=== PATIENT | female | born 2000 | race African-American/Black ===

== ENCOUNTER 2021-06-29 14:29 | Emergency (ER) | payer OTHER ==
[~2021-06-29] VITALS: Ht 157.5 cm; Wt 74.4 kg
[2021-06-29] MEDS ORDERED: HYDROCODONE/APAP 7.5MG-325MG 1 EA TAB PO ONE (15:00)
[2021-06-29 17:08] VITALS: BP 121/80
== END 2021-06-29 17:16 | disposition home or self-care (01) ==
LOC: ER 14:53
DX: S93.402A Sprain of unspecified ligament of left ankle, initial encounter (principal); X50.1XXA Overexertion from prolonged static or awkward postures, initial encounter; Y93.01 Activity, walking, marching and hiking; Y92.89 Other specified places as the place of occurrence of the external cause; J45.909 Unspecified asthma, uncomplicated
CPT/HCPCS: 99284